=== PATIENT | female | born 1930 | race Caucasian/White ===

== ENCOUNTER 2018-12-05 13:34 | Emergency (ER) | payer OTHER ==
[~2018-12-05] VITALS: Ht 152.4 cm; Wt 47.6 kg
[2018-12-05] MEDS ORDERED: GABAPENTIN300 MG (13:39)
[2018-12-05] MEDS ORDERED: SYNTHROID50 MCG (13:40)
[2018-12-05] MEDS ORDERED: ZOLOFT25 MG (13:41)
== END 2018-12-05 20:21 | disposition home or self-care (01) ==
LOC: ER 13:34
DX: G30.8 Other Alzheimer's disease (principal); F02.80 Dementia in other diseases classified elsewhere, unspecified severity, without behavioral disturbance, psychotic disturbance, mood disturbance, and anxiety; N39.0 Urinary tract infection, site not specified